=== PATIENT | female | born 1965 | race Caucasian/White ===

== ENCOUNTER → 2016-06-11 | Outpatient (CLI) | payer BC ==
[~2016-06-11] MED LIST: CEPH500C PO
--- NOTE | 2016-06-11 16:17 | MAMMOGRAPHY REPORT ---
UNILATERAL RIGHT DIGITAL DIAGNOSTIC MAMMOGRAM TOMOSYNTHESIS WITH CAD AND TARGETED RIGHT ULTRASOUND: 06/11/2016 CLINICAL HISTORY: 51-year-old woman presents for follow-up of a probable complicated cyst and an adj acent benign-appearing solid versus cystic mass in the 12:00 right breast. TECHNIQUE: Right breast tomosynthesis in addition to standard 2D mammography was performed. Current study was also evaluated with a Computer Aided Detection (CAD) system. COMPARISON: Comparison is made to exams dated: 12/04/2015 ultrasound, 11/23/2015 mammogram - [facility], and 09/01/2007. BREAST COMPOSITION: There are scattered areas of fibroglandular density in the right breast. FINDINGS: The previously observed lobulated and circumscribed 6.4 x 4.4 mm mass in the 12:00 anteri or right breast has decreased in size, confirming benignity. There is persistence of a 5.7 x 2 mm m ass in the 12:00 anterior right breast. No other new suspicious mass, architectural distortion or c luster of suspicious microcalcifications are seen. Further evaluation with ultrasound was performed . Real-time high-resolution sonographic evaluation was performed in the 12:00 right breast. In the 12 :00 periareolar axis, a small round circumscribed hypoechoic solid appearing mass is again identifie d measuring 2.6 x 1.9 x 2.5 mm. On the previous ultrasound, this mass measured 2.6 x 2.1 x 2.7 mm. It is unchanged in size and likely benign. The cystic appearing mass also in the 12:00 periareolar right breast is no longer identified, correlating with the decreasing mammographic mass. That find ing is considered benign. IMPRESSION: ACR-BI-RADS CATEGORY 3: PROBABLY BENIGN, TARGETED ULTRASOUND ACR-BI-RADS CATEGORY 3: TX OBABLY BENIGN 1. There is a benign-appearing 2.6 mm hypoechoic circumscribed mass in the 12:00 periareolar right b reast, that is unchanged in size for 6 months. Although this is most likely benign, another short i nterval follow-up targeted ultrasound is recommended to ensure longer stability, in 6 months. Annua l bilateral mammography will be due at that time. 2. A previously observed probable complicated cyst correlating with a mammographic mass has resolve d, confirming benignity. These results and recommendations were discussed with the patient at the time of the exam. Approximately 10% of breast cancers are not detected with mammography. A negative mammographic repor t should not delay biopsy if a clinically suggestive mass is present. Nivia Horowitz M.D. ay/:06/11/2016 13:39:47 [employer]: Nikki Krishnan, [facility] letter sent: Follow Up Recommended 3 BI-RADS Code: ACR-BI-RADS Category 3: Probably Benign Ultrasound BI-RADS: ACR-BI-RADS Category 3: P robably Benign
== END | disposition home or self-care (01) ==
LOC: C.MAMM 09:42
PROVIDERS: ATTEND Family Medicine
DX: Z09 Encounter for follow-up examination after completed treatment for conditions other than malignant neoplasm (principal); N63 Unspecified lump in breast